=== PATIENT | female | born 1960 | race Caucasian/White ===

== ENCOUNTER 2017-04-10 14:50 | Observation (INO) | payer MEDICAID, OTHER ==
[~2017-04-10] VITALS: Ht 157.5 cm; Wt 84.6 kg
[~2017-04-10 14:50] MED LIST: NEOSTIGMINE 3 MG/3 ML SYR IV ONE; ONDANSETRON HCL 4 MG/2 ML VIAL IV PUSH ONE; PROPOFOL 200 MG/20 ML AMP IV ONE; ePHEDrine/NS 25 MG/5 ML SYR IV ONE
[2017-04-10 14:55] VITALS: BP 138/70; PULSE 64; RESP 16; TEMP 98.3; O2SAT 100
[2017-04-10] MEDS ORDERED: SODIUM CHLOR 0.9% 1000 ML INJ 1,000 ML IV SCH ×3 (15:17→17:39)
--- NOTE | 2017-04-10 15:26 | PD ---
HPI . Abdominal pain Chief Complaint: Abdominal Pain Time Seen by Provider: 15:12 Travel History International Travel<30 days: No Contact w/Intl Traveler<30days: No Traveled to known affect area: No History of Present Illness HPI Patient presents complaining with abdominal pain. It started about 11:00 last night more as an indigestion. She states that she was pretty uncomfortable with it all night. She started vomiting at about 6 this morning. She reports approximately 6 episodes of emesis. She has also had a couple of loose stools. She subsequently presented to an urgent care where she was found to have right lower quadrant tenderness. She was sent to us for further evaluation for possible appendicitis. The pain is crampy and is rated as 9/10. She denies any urinary tract symptoms. [facility] Past Medical History Diminished Hearing: No Tetanus Vaccination: Unknown Influenza Vaccination: No ?: Not Social History Alcohol Use: No Tobacco Use: Yes (1 PPD) Substance Use: No Allergies-Medications (Allergen,Severity, Reaction): Coded Allergies: No Known Allergies (Unverified , 04/10/17) Review of Systems Except as stated in HPI: all other systems reviewed are Neg General / Constitutional: No: Fever, Chills Gastrointestinal: Positive: Nausea, Vomiting, Diarrhea, Abdominal Pain Genitourinary: No: Urgency, Frequency, Dysuria Physical Exam Narrative GENERAL: Awake and alert and in no acute distress. SKIN: Warm and dry. HEAD: Atraumatic. Normocephalic. EYES: Pupils equal and round. Extraocular movements intact. ENT: No nasal bleeding or discharge. Mucous membranes pink and moist. NECK: Trachea midline. Neck supple. CARDIOVASCULAR: Regular rate and rhythm. Heart sounds are normal. RESPIRATORY: No accessory muscle use. Lungs are clear. GASTROINTESTINAL: Abdomen soft. Right lower quadrant tenderness. No guarding or rebound. Nondistended. MUSCULOSKELETAL: No obvious deformities. No edema. NEUROLOGICAL: Awake and alert. No obvious cranial nerve deficits. Motor grossly within normal limits. Normal speech. PSYCHIATRIC: Appropriate mood and affect; insight and judgment normal. Data Data Last Documented VS Vital Signs Date Time Temp Pulse Resp B/P Pulse Ox O2 Delivery O2 Flow Rate FiO2 04/10/17 14:55 98.3 64 16 138/70 100 Orders Basic Metabolic Panel (Bmp) (04/10/17 15:17) Complete Blood Count With Diff (04/10/17 15:17) Urinalysis - C+S If Indicated (04/10/17 15:17) Ct Abd/Pel W Iv Contrast(Rout) (04/10/17 15:17) Iv Access Insert/Monitor (04/10/17 15:17) Morphine Inj (Morphine Inj) (04/10/17 15:30) Ondansetron Inj (Zofran Inj) (04/10/17 15:30) Sodium Chlor 0.9% 1000 Ml Inj (Ns 1000 M (04/10/17 15:17) Sodium Chloride 0.9% Flush (Ns Flush) (04/10/17 15:30) MDM Medical Decision Making Medical Screen Exam Complete: Yes Emergency Medical Condition: Yes Differential Diagnosis Differential diagnosis of abdominal pain includes but is not limited to gastritis, pancreatitis, hepatitis, gastroenteritis, gallbladder disease, constipation, urinary retention, UTI, peptic ulcer disease, diverticulitis or appendicitis Narrative Course Patient presents complaining with right lower quadrant abdominal pain associated with vomiting and diarrhea. She will be evaluated for possible appendicitis. Signed out to Dr. Rueda pending work up. Diagnosis Primary Impression: Abdominal pain Qualified Code: R10.31 - Right lower quadrant abdominal pain Condition: Stable Shayla Parker MD April 10, 2017 15:26
[2017-04-10] MEDS ORDERED: MORPHINE SULFATE 4 MG/ML INJ IV PUSH ONE (15:30)
[2017-04-10] MEDS ORDERED: SODIUM CHLORIDE 0.9% FLUSH 10 ML FLUSH IV FLUSH PRN ×2 (15:30→17:45)
[2017-04-10] MEDS ORDERED: ONDANSETRON HCL 4 MG/2 ML VIAL IVP ONE (15:30)
[2017-04-10 16:03] LABS: BLOOD, URINE NEG (NEG); GLUCOSE,URINE NEG (NEG); KETONE, URINE 15 mg/dL (NEG); NITRITE,URINE NEG (NEG); PH, URINE 7.5 (5.0-8.5)
[2017-04-10 16:04] LABS: AUTOMATED NEUTROPHIL # 10.2 TH/MM3 (1.8-7.7); BASOPHIL # 0.2 TH/MM3 (0-0.2); BASOPHIL % 1.6 % (0.0-2.0); EOSINOPHIL % 0.1 % (0.0-4.0); HEMATOCRIT 41.2 % (35.0-46.0); HEMO FLAGS DIFF FINAL; LYMPH % 15.8 % (9.0-44.0); LYMPHOCYTE # 2.1 TH/MM3 (1.0-4.8); MEAN CELL VOLUME 85.5 FL (80.0-100.0); MEAN CORPUSCULAR HEMOGLOBIN 28.7 PG (27.0-34.0); MEAN CORPUSCULAR HGB CONC 33.6 % (32.0-36.0); MONO % 4.7 % (0.0-8.0); NEUT % 77.8 % (16.0-70.0); PLATELET COUNT 247 TH/MM3 (150-450); RED BLOOD COUNT 4.81 MIL/MM3 (4.00-5.30); RED CELL DISTRIBUTION WIDTH 13.5 % (11.6-17.2); WHITE BLOOD COUNT 13.1 TH/MM3 (4.0-11.0)
[2017-04-10 16:15] LABS: BICARBONATE 28.8 MEQ/L (21.0-32.0)
[2017-04-10 16:34] LABS: METHOD OF COLLECTION VOIDED; URINE COLOR YELLOW (YELLW/STRAW)
[2017-04-10 16:35] LABS: COMMENT (UR) CULT NOT INDICATED; CULTURE IF INDICATED CULT NOT INDICATED; MUCUS URINE MANY /lpf (OCC); SQUAMOUS EPITHELIAL CELL URINE 0-5 /hpf (0-5); WBC, URINE 0-2 /hpf (0-5)
[2017-04-10] MEDS ORDERED: IOHEXOL 350 MG/ML 10 ML VIAL (for RAD DIAG) IV ONE (16:37)
--- NOTE | 2017-04-10 16:48 | RADHPO ---
EXAM DATE/TIME: 04/10/2017 16:11 [place] COMPARISON: No previous studies available for comparison. INDICATIONS : Right lower quadrant pain since 3am. IV CONTRAST: 100 cc Omnipaque 350 (iohexol) IV ORAL CONTRAST: No oral contrast ingested. RADIATION DOSE: 18.07 CTDIvol (mGy) MEDICAL HISTORY : None SURGICAL HISTORY : None. ENCOUNTER: Initial ACUITY: 1 day PAIN SCALE: 9/10 LOCATION: Right lower quadrant abdomen. TECHNIQUE: Volumetric scanning of the abdomen and pelvis was performed. Using automated exposure control and ad justment of the mA and/or kV according to patient size, radiation dose was kept as low as reasonably achievable to obtain optimal diagnostic quality images. FINDINGS: Lung bases are clear. Mild fatty liver which is enlarged to about 20.5 cm the spleen, adrenals, kidne ys and pancreas unremarkable. No calcified gallstones. Within the right lower quadrant the appendix is distended to just over 1 cm in diameter with mild per iappendiceal inflammatory changes and a linear area of appendicoliths in the distal appendix. Finding s are characteristic of a mild acute appendicitis. No abscess, obstruction or significant free fluid. No free air. CONCLUSION: 1. Mild acute appendicitis with a small appendicoliths near the tip of the appendix. No abscess, obst ruction or significant free fluid. No free air. 2. Hepatomegaly to 20.5 cm. Tha Hunter MD on April 10, 2017 at 16:43 Board Certified Radiologist. This report was verified electronically.
--- NOTE | 2017-04-10 16:55 | PD ---
Physical Exam Date Seen by Provider: April 10, 2017 Time Seen by Provider: 16:53 Narrative 56-year-old female started having abdominal pain last night. Today she's been vomiting. She has no history of abdominal surgery. She does smoke cigarettes. She's been going for a fatty liver several years ago. She is not a heavy drinker. She was seen by Dr. Parker who ordered evaluation for appendicitis. Her white count is 13,000. CT scan has been done CT scan shows mild acute appendicitis with a small appendicolith at the tip of the appendix. There is no abscess obstruction or significant free fluid. There is no free air. She is also noted to have hepatomegaly. Data Data Last Documented VS Vital Signs Date Time Temp Pulse Resp B/P Pulse Ox O2 Delivery O2 Flow Rate FiO2 04/10/17 17:03 54 20 133/59 98 Room Air 04/10/17 14:55 98.3 Orders Basic Metabolic Panel (Bmp) (04/10/17 15:17) Complete Blood Count With Diff (04/10/17 15:17) Urinalysis - C+S If Indicated (04/10/17 15:17) Ct Abd/Pel W Iv Contrast(Rout) (04/10/17 15:17) Iv Access Insert/Monitor (04/10/17 15:17) Morphine Inj (Morphine Inj) (04/10/17 15:30) Ondansetron Inj (Zofran Inj) (04/10/17 15:30) Sodium Chlor 0.9% 1000 Ml Inj (Ns 1000 M (04/10/17 15:17) Sodium Chloride 0.9% Flush (Ns Flush) (04/10/17 15:30) Iohexol 350 Inj (Omnipaque 350 Inj) (04/10/17 16:37) Sodium Chlor 0.9% 1000 Ml Inj (Ns 1000 M (04/10/17 17:15) Piperacil-Tazo 4.5 Gm Premix (Zosyn 4.5 (04/10/17 17:15) Admit Order (Ed Use Only) (04/10/17 17:27) Labs Laboratory Tests Test 04/10/17 04/10/17 15:50 15:52 Urine Collection Type VOIDED Urine Color YELLOW Urine Turbidity CLEAR Urine pH 7.5 Urine Specific [place] 1.026 Urine Protein TRACE mg/dL Urine Glucose (UA) NEG mg/dL Urine Ketones 15 mg/dL Urine Occult Blood NEG Urine Nitrite NEG Urine Bilirubin NEG Urine Leukocyte Esterase NEG Urine WBC 0-2 /hpf Urine Squamous Epithelial 0-5 /hpf Cells Urine Mucus MANY /lpf Microscopic Urinalysis Comment CULT NOT INDICATED White Blood Count 13.1 TH/MM3 Red Blood Count 4.81 MIL/MM3 Hemoglobin 13.8 GM/DL Hematocrit 41.2 % Mean Corpuscular Volume 85.5 FL Mean Corpuscular Hemoglobin 28.7 PG Mean Corpuscular Hemoglobin 33.6 % Concent Red Cell Distribution Width 13.5 % Platelet Count 247 TH/MM3 Mean Platelet Volume 8.4 FL Neutrophils (%) (Auto) 77.8 % Lymphocytes (%) (Auto) 15.8 % Monocytes (%) (Auto) 4.7 % Eosinophils (%) (Auto) 0.1 % Basophils (%) (Auto) 1.6 % Neutrophils # (Auto) 10.2 TH/MM3 Lymphocytes # (Auto) 2.1 TH/MM3 Monocytes # (Auto) 0.6 TH/MM3 Eosinophils # (Auto) 0.0 TH/MM3 Basophils # (Auto) 0.2 TH/MM3 CBC Comment DIFF FINAL Differential Comment Sodium Level 140 MEQ/L Potassium Level 4.0 MEQ/L Chloride Level 104 MEQ/L Carbon Dioxide Level 28.8 MEQ/L Anion Gap 7 MEQ/L Blood Urea Nitrogen 7 MG/DL Creatinine 0.58 MG/DL Estimat Glomerular Filtration 108 ML/MIN Rate Random Glucose 110 MG/DL Calcium Level 8.9 MG/DL [facility] Medical Record Reviewed: Yes Supervised Visit with TAWNYA: No Differential Diagnosis Differential includes appendicitis, nonspecific abdominal pain Narrative Course CT scan is read as showing acute early appendicitis. Dr. Campa has been contacted and is taking the patient to the operating room Diagnosis Primary Impression: Abdominal pain Qualified Code: R10.31 - Right lower quadrant abdominal pain Additional Impression: Acute appendicitis Admitting Information Admitting Physician Requests: Observation Condition: Stable Nico Rueda MD April 10, 2017 16:55
[2017-04-10 17:03] VITALS: BP 133/59; PULSE 54; RESP 20; O2SAT 98
[2017-04-10] MEDS ORDERED: PIPERACIL-TAZO 4.5 GM PREMIX 100 ML IV ONE (17:15)
[2017-04-10 17:40] VITALS: BP 132/53; PULSE 52; RESP 16; TEMP 99; O2SAT 97
[2017-04-10] MEDS ORDERED: ACETAMINOPHEN/HYDROcodone 325 MG/5 MG TAB PO PRN (17:45)
[2017-04-10] MEDS ORDERED: oxyCODONE/ACETAMINOPHEN 5 MG/325 MG TAB PO PRN (17:45)
[2017-04-10] MEDS ORDERED: Post-op Orders (for Pharmacy) MISC XX ONE (17:45)
[2017-04-10] MEDS ORDERED: ONDANSETRON HCL 4 MG/2 ML VIAL IV PRN (17:45)
--- NOTE | 2017-04-10 17:46 | HHI.PR ---
Immediate Post Op Note Procedure Date: April 10, 2017 Pre Op Diagnosis: acute appy Post Op Diagnosis: same Surgeon: Waylon Campa MD Freight Trucker(s): see or sheet Procedure: lap appy Findings: distended appendix Complications: none Specimen(s) removed: appendix Estimated blood loss: 5cc Anesthesia: General Drains: None Patient to: PACU Patient Condition: Good Waylon Campa MD April 10, 2017 17:46
[2017-04-10] MEDS ORDERED: BUPIVACAINE/EPINEPHRINE 0.5% PF 30 ML VIAL ONE (17:47)
[2017-04-10] MEDS ORDERED: ACETAMINOPHEN 1000 MG/100 ML VIAL IV ONE (17:52)
[2017-04-10] MEDS ORDERED: LACTATED RINGER'S 1000 ML INJ 1,000 ML ONE (17:52)
[2017-04-10] MEDS ORDERED: FAMOTIDINE 20 MG/2 ML VIAL ONE (17:52)
--- NOTE | 2017-04-10 18:47 | MH ---
cc: EVELYN ALMEIDA MD DATE OF ADMISSION 04/10/2017 CHIEF COMPLAINT Right lower quadrant abdominal pain. HISTORY OF PRESENT ILLNESS The patient is a 56-year-old female presents with acute onset of right lower quadrant abdominal pain. She states the pain started last night at approximately 12:00 p.m. and continued to get worse, kept her up from sleep, was an 8/10 currently 7/10. She states no alleviating factors, exacerbated by movement. She came to the emergency department for further evaluation including CT scan showing acute appendicitis with small appendicolith and white count of 13,000. On my exam, she was evaluated. She confirmed the above, states she had multiple episodes of nausea, vomiting and denies any diarrhea or constipation. She has never had pain quite like this before. She did have from rebound on exam. PAST MEDICAL HISTORY The patient has no past medical history PAST SURGICAL HISTORY The patient has no surgeries. ALLERGIES The patient has no known drug allergies. SOCIAL HISTORY Positive smoking a pack a day, a denies ETOH or IVDA. MEDICATIONS The patient on no medications. FAMILY HISTORY Dad with Mother history of coronary artery bypass graft. REVIEW OF SYSTEMS GENERAL: The patient denies fevers. HEENT: Denies eye pain, ear pain. NECK: Denies swelling or pain. LUNGS: Denies cough or wheeze. CARDIAC: Denies palpitations or chest pain. ABDOMEN: Complained of nausea, vomiting, abdominal pain. EXTREMITIES: Denies myalgias. Denies swelling, pain or arthralgias. ENDOCRINE: Denies polyuria, polydipsia. : Denies dysuria, hematuria. INTEGUMENT: Denies masses or lesions. PHYSICAL EXAMINATION GENERAL: The patient in no acute distress. VITAL SIGNS: Temperature 98.3, pulse 64, respiratory rate 16, blood pressure 138/70, saturation 100%. HEENT: PERRLA, EOMI. NECK: Supple. Trachea midline. LUNGS: Clear to auscultation bilaterally. Bilateral expansion. HEART: S1-S2 regular rhythm. ABDOMEN: Soft, positive tenderness to palpation right lower quadrant. Positive rebound. Minimal guarding. EXTREMITIES: Warm, well-perfused. NEUROLOGIC: Alert and oriented times four. 5/5 motor strength all extremities. INTEGUMENT: No obvious masses or lesions. BACK: Normal curvature. No step-offs. PSYCHIATRIC: Good insight, good judgment. LABORATORY AND DIAGNOSTIC DATA WBC 13.1, hemoglobin 13.8, hematocrit 41.2, platelets 247. Sodium 140, potassium four, chloride 104, BUN 7, creatinine 0.58, glucose 110, calcium 8.9. IMAGING STUDIES CT scan reviewed by myself, distended appendicitis with appendicolith, concern for acute appendicitis. No free air. No free fluid. ASSESSMENT A 56-year-old female with acute appendicitis and right lower quadrant pain. PLAN After full clinical, radiologic, laboratory workup, patient with above-named issue including acute appendicitis. Plan for emergent operative intervention including laparoscopic appendectomy possible open. Discussed with the patient in detail. The patient stated understanding and agrees. We will place the patient on antibiotics, pain control. IV fluids. The patient can go to the operating room again as discussed. MD JOE Leach/ /6:15 PM /6:28 PM
[2017-04-10] MEDS ORDERED: fentaNYL CITRATE 250 MCG/5 ML AMP ONE (19:27)
[2017-04-10] MEDS ORDERED: KETOROLAC TROMETHAMINE 30 MG/ML (IVP) VIAL IVP PRN (20:00)
--- NOTE | 2017-04-10 20:17 | MP ---
cc: EVELYN CAMPA MD DATE OF SURGERY 04/10/17 PREOPERATIVE DIAGNOSES Acute appendicitis. POSTOPERATIVE DIAGNOSIS Acute appendicitis. PROCEDURE PERFORMED Laparoscopic appendectomy. SURGEON Dr. Tabatha Campa. DRIVER/MERCHANDISER See OR sheet ANESTHESIA GETA. IV FLUIDS See anesthesia sheet ESTIMATED BLOOD LOSS 5 mL. DRAINS None COMPLICATIONS None. WOUND CLASSIFICATION Clean contaminated. SPECIMENS Appendix FINDINGS Distended, nonperforated appendix INDICATION The patient is a 56-year-old female presents with acute onset of right lower quadrant abdominal pain. She stated the pain started at midnight and stated that it did not improve so she came to the emergency department. Further evaluation including CT scan with findings of acute side along with leukocytosis. Decision made for operative intervention including the laparoscopic appendectomy. Risk and benefits discussed. The patient stated understanding and agreed and would like to proceed. PROCEDURE IN DETAIL The patient was taken to the operating suite, placed in supine position. She was prepped and draped in usual sterile fashion after induction of general endotracheal anesthesia. Brief time-out done stating correct patient, procedure, surgical site and all were in agreement with this. Attention first directed to the umbilicus where a stab kathy incision made after injection of local anesthetic. Veress needle placed, saline drop test confirmed intraabdominal placement. Abdomen insufflated to 15 mm pneumoperitoneum.. The Veress needle was changed for a 5-mm port. The scope placed and on inspection no evidence of injury. Two other ports placed, one 12 mm left lower quadrant followed by 5 mm to the pubic. The patient was placed in Trendelenburg airplane to the left. The appendix was identified and noted to be indurated, distended and thickened. It was grasped and adhesions were mobilized off the appendix. The base of the appendix was identified. A [place] grasper was used to dissect the base of the appendix. Once a window was created, a 45 Endo-GAIL stapler was used to transect the appendix base. The mesoappendix then was also mobilized and a 45 Endo-GAIL stapler was used to transect the mesoappendix. The appendix was placed in the appendiceal bag and removed from the left lower quadrant port. Hemostasis obtained with electro Bovie cautery. Ray-Gemma used to confirm hemostasis. This was removed from the belly. Abdomen was desufflated, ports were removed. Left lower quadrant fascia was closed with single 8-0 Vicryl followed by 4-0 Monocryl. Sterile dressings were placed including Steri-Strips and sterile dressing. The patient tolerated the procedure well. No intraoperative complication. The patient was extubated, stable, taken to PACU. MD JOE Leach/ /7:19 PM /8:07 PM AFSHAN
[2017-04-10 20:43] VITALS: BP 105/52; PULSE 57; RESP 16; TEMP 97.8; O2SAT 93
[2017-04-10 20:44] VITALS: BP 105/52; PULSE 57; RESP 16; TEMP 97.8; O2SAT 93
[2017-04-10] MEDS: DOCUSATE SODIUM 100 MG CAP PO SCH (21:00)
[2017-04-10] MEDS: SODIUM CHLORIDE 0.9% FLUSH 10 ML FLUSH IV FLUSH SCH (21:00)
[2017-04-10] MEDS: metroNIDAZOLE 500 MG INJ 100 ML IV SCH (22:47)
[2017-04-11 00:43] VITALS: BP 106/68; PULSE 61; RESP 16; TEMP 97.9; O2SAT 96
[2017-04-11] MEDS: metroNIDAZOLE 500 MG INJ 100 ML IV SCH (06:11)
--- NOTE | 2017-04-11 06:40 | HHI.PR ---
Subjective Subjective Notes no issues, tolerating clears, pain controlled Objective Vitals/I&O Vital Signs Date Time Temp Pulse Resp B/P Pulse Ox O2 Delivery O2 Flow Rate FiO2 04/11/17 00:43 97.9 61 16 106/68 96 04/10/17 17:03 Room Air Labs Laboratory Tests Test 04/10/17 04/10/17 15:50 15:52 Urine Collection Type VOIDED Urine Color YELLOW Urine Turbidity CLEAR Urine pH 7.5 Urine Specific [place] 1.026 Urine Protein TRACE Urine Glucose (UA) NEG Urine Ketones 15 Urine Occult Blood NEG Urine Nitrite NEG Urine Bilirubin NEG Urine Leukocyte Esterase NEG Urine WBC 0-2 Urine Squamous Epithelial 0-5 Cells Urine Mucus MANY Microscopic Urinalysis Comment CULT NOT INDICATED White Blood Count 13.1 Red Blood Count 4.81 Hemoglobin 13.8 Hematocrit 41.2 Mean Corpuscular Volume 85.5 Mean Corpuscular Hemoglobin 28.7 Mean Corpuscular Hemoglobin 33.6 Concent Red Cell Distribution Width 13.5 Platelet Count 247 Mean Platelet Volume 8.4 Neutrophils (%) (Auto) 77.8 Lymphocytes (%) (Auto) 15.8 Monocytes (%) (Auto) 4.7 Eosinophils (%) (Auto) 0.1 Basophils (%) (Auto) 1.6 Neutrophils # (Auto) 10.2 Lymphocytes # (Auto) 2.1 Monocytes # (Auto) 0.6 Eosinophils # (Auto) 0.0 Basophils # (Auto) 0.2 CBC Comment DIFF FINAL Differential Comment Sodium Level 140 Potassium Level 4.0 Chloride Level 104 Carbon Dioxide Level 28.8 Anion Gap 7 Blood Urea Nitrogen 7 Creatinine 0.58 Estimat Glomerular Filtration 108 Rate Random Glucose 110 Calcium Level 8.9 Cardiovascular: Regular Lungs: Clear Abdomen: Other (soft incisional tenderness) A/P Assessment and Plan POD 1 Lap appy PLAN Reg diet oob pain control d/c home after lunch ok to shower tomorrow Waylon Campa MD April 11, 2017 06:40
[2017-04-11 07:23] LABS: AUTOMATED NEUTROPHIL # 8.2 TH/MM3 (1.8-7.7); BASOPHIL % 0.1 % (0.0-2.0); EOSINOPHIL # 0.1 TH/MM3 (0-0.4); EOSINOPHIL % 0.5 % (0.0-4.0); HEMATOCRIT 36.2 % (35.0-46.0); HEMO FLAGS DIFF FINAL; LYMPH % 17.1 % (9.0-44.0); LYMPHOCYTE # 1.8 TH/MM3 (1.0-4.8); MEAN CELL VOLUME 88.1 FL (80.0-100.0); MEAN CORPUSCULAR HEMOGLOBIN 28.5 PG (27.0-34.0); MEAN CORPUSCULAR HGB CONC 32.4 % (32.0-36.0); MONO % 6.2 % (0.0-8.0); NEUT % 76.1 % (16.0-70.0); PLATELET COUNT 171 TH/MM3 (150-450); RED BLOOD COUNT 4.11 MIL/MM3 (4.00-5.30); RED CELL DISTRIBUTION WIDTH 14.2 % (11.6-17.2); WHITE BLOOD COUNT 10.8 TH/MM3 (4.0-11.0)
[2017-04-11 07:33] LABS: POTASSIUM 4.5 MEQ/L (3.5-5.1)
[2017-04-11 07:48] LABS: BICARBONATE 25.5 MEQ/L (21.0-32.0)
[2017-04-11 08:00] VITALS: BP 102/60; PULSE 74; RESP 18; TEMP 98.3; O2SAT 95
[2017-04-11] MEDS: SODIUM CHLORIDE 0.9% FLUSH 10 ML FLUSH IV FLUSH SCH (09:00)
[2017-04-11] MEDS: DOCUSATE SODIUM 100 MG CAP PO SCH (09:35)
== END 2017-04-11 12:35 | disposition home or self-care (01) ==
LOC: PHED 14:50 → PHEDA 17:28 → PH3A 20:13
PROVIDERS: ADMIT Surgery; ATTEND Surgery
DX: K35.80 Unspecified acute appendicitis (principal); F17.210 Nicotine dependence, cigarettes, uncomplicated
CPT/HCPCS: 00840; 44970; 74177; 80048; 81001; 85025; 88304; 94150; 96374; 96375; 99285; G0378; J0131; J0690; J2270; J2405; J2543; J2710; J3010; J7030; J7120; Q9967